=== PATIENT | male | born 1990 | race Caucasian/White ===

== ENCOUNTER 2020-06-12 21:04 | Emergency (ER) | payer OTHER ==
[~2020-06-12] VITALS: Ht 172.7 cm; Wt 85.6 kg
[2020-06-12] MEDS ORDERED: KETOROLAC 30 MG/ML 1ML VIAL IV ONE (22:15)
[2020-06-12] MEDS ORDERED: methylPREDNISolone 125MG 2ML VIAL IV ONE (22:15)
[2020-06-12] MEDS ORDERED: CYCLOBENZAPRINE 10MG TABLET PO ONE (22:15)
[2020-06-12] MEDS ORDERED: LIDOCAINE 5% (LIDODERM) PATCH TD ONE (22:15)
--- NOTE | 2020-06-12 22:54 | REPVR ---
PROCEDURE INFORMATION: Exam: CT Lumbar Spine Without Contrast Exam date and time: 06/12/2020 10:25 PM Age: 29 years old Clinical indication: Low back pain; Additional info: Low back pain radiating to lle TECHNIQUE: Imaging protocol: Computed tomography images of the lumbar spine without contrast. Radiation optimization: All CT scans at this facility use at least one of these dose optimization techniques: automated exposure control; mA and/or kV adjustment per patient size (includes targeted exams where dose is matched to clinical indication); or iterative reconstruction. COMPARISON: No relevant prior studies available. FINDINGS: Vertebrae: There is mild anterior wedging of the T12 and L1 vertebral bodies, with less than 50% loss of anterior vertebral body height. There is a prominent Schmorl's node at the superior T12 endplate. No pars interarticularis defect is identified. No destructive osseous lesions are seen. Discs/Spinal canal/Neural foramina: There is mild left neural foraminal stenosis due to disc bulge at the L5-S1 level. No significant central canal stenosis is demonstrated by CT. IMPRESSION: 1. Compression deformities at T12 and L1 are age indeterminate. 2. Prominent Schmorl's node at the superior T12 endplate is also age indeterminate. 3. Disc bulge causing mild left neural foraminal stenosis at L5-S1. Electronically signed by: Yen Schuster On 06/12/2020 22:54:24 PM
[2020-06-13 00:49] VITALS: BP 133/71
[2020-06-13] MEDS ORDERED: LIDO5DIS41 TOP (00:49)
[2020-06-13] MEDS ORDERED: PRED20TA PO (00:49)
[2020-06-13] MEDS ORDERED: CYCL5TAB PO (00:49)
[2020-06-13] MEDS ORDERED: **NOTE PATIENT COMMENT** MISC XX SCH (21:00)
== END 2020-06-13 01:01 | disposition home or self-care (01) ==
LOC: M ED 21:04
DX: S39.012A Strain of muscle, fascia and tendon of lower back, initial encounter (principal); S22.080A Wedge compression fracture of T11-T12 vertebra, initial encounter for closed fracture; S32.010A Wedge compression fracture of first lumbar vertebra, initial encounter for closed fracture; M54.17 Radiculopathy, lumbosacral region; M99.53 Intervertebral disc stenosis of neural canal of lumbar region; M51.44 Schmorl's nodes, thoracic region; X50.0XXA Overexertion from strenuous movement or load, initial encounter; Y92.9 Unspecified place or not applicable; Y93.B3 Activity, free weights; Y99.9 Unspecified external cause status; Z87.81 Personal history of (healed) traumatic fracture
CPT/HCPCS: 72131; 96374; 96375; 99284; J1885; J2930

== ENCOUNTER 2021-04-18 22:16 | Emergency (ER) | payer OTHER ==
[~2021-04-18] VITALS: Ht 172.7 cm; Wt 87.0 kg
[~2021-04-18 22:16] MED LIST: CYCL5TAB PO; LIDO5DIS41 TOP; PRED20TA PO
[2021-04-19] MEDS ORDERED: LIDOCAINE 5% (LIDODERM) PATCH TD ONE (01:20)
[2021-04-19] MEDS ORDERED: CYCLOBENZAPRINE 10MG TABLET PO ONE (01:20)
[2021-04-19] MEDS ORDERED: KETOROLAC 60MG 2ML VIAL IM ONE (01:20)
[2021-04-19] MEDS ORDERED: KETO10TAB PO (02:30)
[2021-04-19] MEDS ORDERED: LIDO5DIS41 TD (02:30)
[2021-04-19] MEDS ORDERED: CYCL-707 PO (02:30)
[2021-04-19 02:38] VITALS: BP 124/68
[2021-04-19] MEDS ORDERED: **NOTE PATIENT COMMENT** MISC XX SCH (21:00)
== END 2021-04-19 02:41 | disposition home or self-care (01) ==
LOC: M ED 22:16
DX: M54.50 Low back pain, unspecified (principal); Z79.899 Other long term (current) drug therapy
CPT/HCPCS: 99283; J1885